=== PATIENT | female | born 1990 | race Caucasian/White ===

== ENCOUNTER 2018-07-08 09:41 | Inpatient (IN) ==
[2018-07-08] MEDS ORDERED: Naloxone 0.4 MG/ML INJ IVP PRN ×2 (10:31→11:53)
[2018-07-08] MEDS ORDERED: *HR* Nalbuphine 10 MG/ML AMPUL IVP PRN (10:31)
[2018-07-08] MEDS ORDERED: Ondansetron 4 MG/2 ML VIAL IVP PRN ×2 (10:31→11:53)
[2018-07-08] MEDS ORDERED: Metoclopramide 10 MG/2 ML VIAL IVP PRN (10:31)
[2018-07-08] MEDS ORDERED: Famotidine 20 MG/2 ML VIAL IVP PRN (10:31)
[2018-07-08 10:53] LABS: Basophils % 0.1 %; Eosinophils % 0.2 %; Hematocrit 36.1 % (35.3-44.9); Hemoglobin 12.9 g/dL (11.5-15.4); Immature Granulocytes % 0.3 % (0-4); Lymphocytes # 1.8 K/mcL (0.6-4.6); Lymphocytes % 18.5 %; Mean Corpuscular HGB Conc 35.7 g/dL (31.6-35.5); Mean Corpuscular Volume 86.8 fL (83.0-100.0); Mean Platelet Volume 11.1 fL (9.4-12.4); Monocytes # 0.5 K/mcL (0.0-1.3); Monocytes % 4.6 %; Neutrophils # 7.4 K/mcL (1.6-8.9); Platelet Count 221 K/mcL (140-400); Red Blood Count 4.16 M/mcL (3.82-4.97); Red Cell Distribution Width 12.3 % (11.5-14.5); Segmented Neutrophils % 76.3 %
[2018-07-08 11:16] LABS: Alanine Aminotransferase 17 Units/L (7-52); Aspartate Amino Transferase 20 Units/L (13-39); BUN/Creatinine Ratio 22 (6-26); Blood Urea Nitrogen 13 mg/dL (6-20); Lactate Dehydrogenase 166 Units/L (140-271); Uric Acid 6.6 mg/dL (2.3-7.6); eGFR For Non-African Americans > 60 (> 60)
--- NOTE | 2018-07-08 11:27 | OB/GYN History & Physical ---
Date of Encounter: 07/08/18 Time of Encounter: 11:24 Assessment and Plan (1) Spontaneous rupture of amniotic membranes Current visit: Yes Status: Acute Admit for expectant management. Nubain and epidural when requested. Will augment if needed. Anticipate . (2) 36 weeks gestation of Current visit: Yes Status: Acute History of Present Illness Chief complaint: SROM HPI: Ms. Strange is a 27 year old female presenting at 36w5d for leaking clear fluid since 0530 this am. She reports she has continued leaking since. She also reports contractions about 20 minutes apart. No other complaints. Good FM. O positive Rubella immune Serologies negative GBS negative Past Med Surg Social Fam HX - Past Medical History Medical history: asthma Psychiatric history: no psych history - Past Surgical History Additional surgical history: wisdom teeth removal - Social History Smoking Status: Former smoker Smokeless Tobacco Status: No Alcohol use: none Drug use: none - Family History Mother History Unknown: Yes Obstetrical History - Pregnancies : 1 Medications and Allergies Tablet 07/08/18 [History] Zyrtec 07/08/18 [History] 3 Allergy/AdvReac Type Severity Reaction Status Date / Time No Known Allergies Allergy Verified 07/08/18 09:52 Review of System OB All systems PM: reviewed and no additional remarkable complaints except as stated Exam - Constitutional Constitutional: well developed, well nourished, no acute distress - HEENT HEENT: Mucus Membranes Moist - Lungs Respiratory exam: CTAB - Cardiovascular Cardiovascular exam: RRR, +S1, +S2 - Abdomen Abdomen: Present: gravid - Extremities Extremities exam: normal inspection Deep Tendon Reflex Grade: 2+ Normal - Vulva Vulva: bilateral: normal - Vagina Vagina: Present: normal moisture (SSE with large amount pooling of clear fluid. Positive nitrazine.) - Cervix Dilation: 2 Effacement: 90 Station: -1 - Anus/Rectum Anus/Rectum: Present: normal perianal skin Results Result Diagrams: 07/08/18 10:30 07/08/18 10:30 Abnormal lab results MCHC 35.7 g/dL (31.6-35.5) H 07/08/18 10:30 Creatinine 0.59 mg/dL (0.60-1.20) L 07/08/18 10:30 All other labs normal. - VTE Reasons for not Prescribing Prophylaxis: Treatment not Indicated - Low risk for VTE
[2018-07-08] MEDS ORDERED: *HR* FentaNYL (PF) 100 MCG/2 ML VIAL EP ONE (11:53)
[2018-07-08] MEDS ORDERED: *HR* Ropivacaine/PF 0.2% 20 ML VIAL EP ONE (11:53)
[2018-07-08] MEDS ORDERED: EPHEDrine 50 MG/ML VIAL IVP PRN (11:53)
[2018-07-08] MEDS ORDERED: Bupivacaine-MPF 0.25% 10 ML VIAL EP ONE (11:53)
--- NOTE | 2018-07-08 11:57 | Anesthesia Evaluation PreOp ---
Date of Encounter: 07/08/18 Time of Encounter: 11:55 - Past History Planned Operation: SHINE Cardiac History: Denies any Significant Hx Pulmonary History: Asthma GIRL FRIDAY History: Denies Any Significant HX Other Medical History: Denies Any Significant HX Anesthesia History: No Prior Anesthetic Complications, Past Anesthesia (wisdom teeth extraction) : Yes Alcohol Use: none Drug use: none Medications and Allergies Tablet 07/08/18 [History] Zyrtec 07/08/18 [History] 3 Allergy/AdvReac Type Severity Reaction Status Date / Time No Known Allergies Allergy Verified 07/08/18 09:52 - Meds/Allergy Pre-op Review Medications Reviewed: Yes Allergies Reviewed: Yes Beta Blockers on Current Med List: No Anesthesia Results - Labs 07/08/18 10:30 07/08/18 10:30 Anesthesia Exam BP 143/79 P 76 T 97.4 R 16 Height: 5'5" Weight: 104.1kg NPO (# of Hours): 4hrs solids, recent clears Pain Scale: 3 Pain Scale Used: Numeric (1 - 10) - HEENT Pupil (Motor): Pupils equal Mallampati: II Teeth: Normal Oral Opening: Greater than 3 - GIRL FRIDAY LOC: Oriented GIRL FRIDAY Motor: Normal RUE, Normal LUE, Normal RLE, Normal LLE, Normal Face GIRL FRIDAY Sensory: Normal: RUE, LUE, RLE, LLE, Face - Cardiac Rhythm: Regular Murmur: None JVD: No Carotid Bruit: No - Pulmonary Breath Sounds: bilateral Clear Respiratory Effort: Symmetrical Anesthesia Assess/Plan ASA Score: 2 Modified [place] Scale for Level of Consciousness: Cooperative, oriented, and tranquil Anesthetic Plan: Regional Autologous Blood: No Monitoring Plan: Standard Monitors Recovery Plan: Other
[2018-07-08] MEDS ORDERED: Epidural Premix (fent/bupiv) 110 ML EP SCH (12:00)
[2018-07-08] MEDS ORDERED: Oxytocin 20 units/ LR 1000 mL 20 UNIT/1,000 ML BAG IVC SCH ×2 (12:15→19:54)
[2018-07-08] MEDS: Ringers Solution, Lactated 1,000 ML IVC SCH ×2 (12:17→15:48)
[2018-07-08 12:25] LABS: Amphetamine Screen,Urine Negative ng/mL (Cutoff=1000); Barbiturate Screen,Urine Negative ng/mL (Cutoff=200); Benzodiazepines Screen,Urine Negative ng/mL (Cutoff=200); Cannabinoid Screen,Urine Negative ng/mL (Cutoff = 50); Cocaine Screen,Urine Negative ng/mL (Cutoff= 300); Opiate Screen,Urine Negative ng/mL (Cutoff=300); Phencyclidine Screen,Urine Negative ng/mL (Cutoff=25); Protein/Creatinine Ratio,Urine 0.55 mg/mg (0.00-0.20)
[2018-07-08] MEDS ORDERED: Lidocaine 1% 20 ML MDV ONE (13:36)
[2018-07-08] MEDS ORDERED: Lidocaine -MPF 2% 5 ML VIAL ONE (13:36)
[2018-07-08] MEDS ORDERED: *HR* FentaNYL (PF) 100 MCG/2 ML VIAL ONE (13:37)
--- NOTE | 2018-07-08 14:14 | Anesthesia Procedures ---
Date of Encounter: 07/08/18 Time of Encounter: 13:40 Procedures: Anesthesia - Epidural/Spinal Patient ID/Chart reviewed: Yes Patient examined: Yes OB Eval: Gestational age: 36 OB Eval: : 1 OB Eval: Hx Para: 0 OB Eval: Contractions: Non-stressed pattern Consent Obtained: Yes Supplemental Oxygen: None/Room Air Site Prep: Aseptic Technique Patient position: upright Local Anesthetic: Lidocaine 1% Amount of Local Anesthetic used: 3 Touhy Needle Gauge: 18 Touhy Needle Depth (cm): 8 Catheter Depth at Skin (cm): 15 Test Dose (1.5% Lido + Epi): Volume given (mls): 3 Test Dose Result: Negative Loading Dose: 0.25% Marcaine (mls): 7 Loading Dose: Fentanyl (mcg): 100 Loading Dose Administered: Thru Catheter Infusion Med: 0.125% Bupivacaine w/ 2 mcg/ml Fentanyl Infusion Rate (mls/hr): [address]: Tegaderm, Tape Interspace Used: L4-L5 Loss of Resistance (MARYAM): Yes Blood: No CSF: No Paresthesia: No Procedure: SHINE placed 1st pass in upright position without any immediate noted complications. VSS and FHT stable throughout. Vitals + FHT's: 1340 BP 139/81 P 91 R20 1405 BP 111/56 P 72 R 16 FHT 130s
--- NOTE | 2018-07-08 14:23 | OB Labor Progress Note ---
Date of Encounter: 07/08/18 Time of Encounter: 14:18 Labor Progress Note - Subjective Subjective: Pt comfortable with epidural. - Cervix Cervix: 7/100/0 - Heart Tones Heart Tones: Category II, deceleration noted, difficulty tracing with EFM. FSE placed. Pt repositioned, LR bolusing, O2 started. - Plan Plan: Continue to monitor. Anticipate .
--- NOTE | 2018-07-08 17:33 | OB/GYN Procedure Note ---
Delivery - Delivery Date: 07/08/18 Provider: Minal Hankins Intrapartum events: none Delivery induction: none Delivery augmentation: pitocin Delivery monitor: internal FHT, internal uterine Anesthesia: epidural Quantitated Blood Loss: 200 - (s) A Infant Delivery Date: 07/08/18 Delivery Time: 16:33 Presentation: vertex Position: ISA Route of delivery: Gender: Female Viability: Viable Pounds: 6 Ounces: 2 Weight Gram: 2.77 kg at 1 minute: 8 at 5 mins: 9 Shoulder Dystocia: not encountered Shoulder Dystocia Maneuvers: Gia maneuver Specimens collected: cord blood Placenta: spontaneous Cord: nuchal cord (x2), nuchal reduced - Repair Episiotomy: none Laceration Description: Perineal - 1st Degree - Complications Delivery complications: none Delivery comments: Pt presented following SROM and progressed well to for viable female infant weighing 6lbs 2oz with apgars 8 at one minute and 9 at five minutes. A nuchal cord x 2 was noted and reduced. After pulsations ceased the cord was clamped and cut and the placenta delivered spontaneous and intact. A first degree perineal laceration was repaired with 2-0 Monocryl. EBL 200ml. Mother and baby stable in kangaroo care following procedure. - Disposition Mom disposition: stable in LDR disposition: stable in LDR
[2018-07-08] MEDS ORDERED: Acetaminophen 325 MG TABLET PO PRN (19:54)
[2018-07-08] MEDS ORDERED: Measles/Mumps/Rubella Vacc 0.5 ML VIAL SQ PRN (19:54)
[2018-07-09] MEDS: Ibuprofen 600 MG TABLET PO PRN ×2 (04:38→11:04)
[2018-07-09 05:30] LABS: Basophils % 0.2 %; Eosinophils % 0.3 %; Hematocrit 31.8 % (35.3-44.9); Immature Granulocytes % 0.4 % (0-4); Lymphocytes # 1.5 K/mcL (0.6-4.6); Lymphocytes % 13.7 %; Mean Corpuscular HGB Conc 34.6 g/dL (31.6-35.5); Mean Corpuscular Hemoglobin 30.3 pg (28.0-33.3); Mean Corpuscular Volume 87.6 fL (83.0-100.0); Monocytes # 0.6 K/mcL (0.0-1.3); Monocytes % 5.3 %; Neutrophils # 8.9 K/mcL (1.6-8.9); Platelet Count 186 K/mcL (140-400); Red Blood Count 3.63 M/mcL (3.82-4.97); Red Cell Distribution Width 12.8 % (11.5-14.5); Segmented Neutrophils % 80.1 %
[2018-07-09 08:02] VITALS: BP 135/92
[2018-07-09] MEDS ORDERED: Prenatal Vit/FA 1 EACH TABLET PO SCH (09:00)
--- NOTE | 2018-07-09 10:25 | Discharge Summary ---
Date of Encounter: 07/09/18 Time of Encounter: 10:22 - Discharge Diagnosis (1) Vaginal delivery Priority: Primary Status: Acute Comments: Pain well controlled with by mouth pain meds Tolerating regular diet Lochia light Voiding independently Passing flatus, but no BM yet Ambulating independently Vital signs stable Discharge home today (2) Breast feeding status of mother Priority: Secondary Status: Acute Comments: Community resources provided - Discharge Medications Prescriptions: Ibuprofen [Motrin] 600 mg PO Q6HR PRN #30 tablet PRN Reason: Cramping Docusate [Colace] 100 mg PO BID #30 capsule Home Medications: Tablet 07/08/18 [History] Zyrtec 07/08/18 [History] Acetaminophen [Tylenol] 650 mg PO Q6HR PRN tablet 07/09/18 [Rx] Docusate [Colace] 100 mg PO BID #30 capsule 07/09/18 [Rx] Ibuprofen [Motrin] 600 mg PO Q6HR PRN #30 tablet 07/09/18 [Rx] Allergies/Adverse Reactions: 3 Allergy/AdvReac Type Severity Reaction Status Date / Time No Known Allergies Allergy Verified 07/08/18 09:52 Data Procedures and tests throughout hospitalization: Laboratory Tests 07/08/18 07/08/18 07/08/18 10:30 10:30 10:30 WBC 9.7 RBC 4.16 Hgb 12.9 Hct 36.1 MCV 86.8 MCH 31.0 MCHC 35.7 H RDW 12.3 Plt Count 221 MPV 11.1 Immature Gran % 0.3 Seg Neutrophils % 76.3 Lymphocytes % 18.5 Monocytes % 4.6 Eosinophils % 0.2 Basophils % 0.1 Neutrophils # 7.4 Lymphocytes # 1.8 Monocytes # 0.5 Eosinophils # 0.0 Basophils # 0.0 BUN Creatinine Est GFR ( Amer) Est GFR (Non-Af Amer) BUN/Creatinine Ratio Uric Acid AST ALT Lactate Dehydrogenase Urine Creatinine 49 Protein/Creatinin Ratio 0.55 H Urine Total Protein 27 H Urine Opiates Screen Negative Ur Barbiturates Screen Negative Ur Phencyclidine Scrn Negative Ur Amphetamines Screen Negative U Benzodiazepines Scrn Negative Urine Cocaine Screen Negative U Marijuana (THC) Screen Negative Ur Drug Screen Interp See Below 07/08/18 07/09/18 10:30 04:32 WBC 11.1 RBC 3.63 L Hgb 11.0 L D Hct 31.8 L MCV 87.6 MCH 30.3 MCHC 34.6 RDW 12.8 Plt Count 186 MPV 11.0 Immature Gran % 0.4 Seg Neutrophils % 80.1 Lymphocytes % 13.7 Monocytes % 5.3 Eosinophils % 0.3 Basophils % 0.2 Neutrophils # 8.9 Lymphocytes # 1.5 Monocytes # 0.6 Eosinophils # 0.0 Basophils # 0.0 BUN 13 Creatinine 0.59 L Est GFR ( Amer) > 60 Est GFR (Non-Af Amer) > 60 BUN/Creatinine Ratio 22 Uric Acid 6.6 AST 20 ALT 17 Lactate Dehydrogenase 166 Urine Creatinine Protein/Creatinin Ratio Urine Total Protein Urine Opiates Screen Ur Barbiturates Screen Ur Phencyclidine Scrn Ur Amphetamines Screen U Benzodiazepines Scrn Urine Cocaine Screen U Marijuana (THC) Screen Ur Drug Screen Inter Labs on day of discharge: Labs from last 24 hours 07/09/18 07/08/18 07/08/18 04:32 10:30 10:30 WBC 11.1 9.7 RBC 3.63 L 4.16 Hgb 11.0 L D 12.9 Hct 31.8 L 36.1 MCV 87.6 86.8 MCH 30.3 31.0 MCHC 34.6 35.7 H RDW 12.8 12.3 Plt Count 186 221 MPV 11.0 11.1 Immature Gran % 0.4 0.3 Seg Neutrophils % 80.1 76.3 Lymphocytes % 13.7 18.5 Monocytes % 5.3 4.6 Eosinophils % 0.3 0.2 Basophils % 0.2 0.1 Neutrophils # 8.9 7.4 Lymphocytes # 1.5 1.8 Monocytes # 0.6 0.5 Eosinophils # 0.0 0.0 Basophils # 0.0 0.0 BUN 13 Creatinine 0.59 L Est GFR ( Amer) > 60 Est GFR (Non-Af Amer) > 60 BUN/Creatinine Ratio 22 Uric Acid 6.6 AST 20 ALT 17 Lactate Dehydrogenase 166 Urine Creatinine Protein/Creatinin Ratio Urine Total Protein Urine Opiates Screen Ur Barbiturates Screen Ur Phencyclidine Scrn Ur Amphetamines Screen U Benzodiazepines Scrn Urine Cocaine Screen U Marijuana (THC) Screen Ur Drug Screen Interp 07/08/18 07/08/18 10:30 10:30 WBC RBC Hgb Hct MCV MCH MCHC RDW Plt Count MPV Immature Gran % Seg Neutrophils % Lymphocytes % Monocytes % Eosinophils % Basophils % Neutrophils # Lymphocytes # Monocytes # Eosinophils # Basophils # BUN Creatinine Est GFR ( Amer) Est GFR (Non-Af Amer) BUN/Creatinine Ratio Uric Acid AST ALT Lactate Dehydrogenase Urine Creatinine 49 Protein/Creatinin Ratio 0.55 H Urine Total Protein 27 H Urine Opiates Screen Negative Ur Barbiturates Screen Negative Ur Phencyclidine Scrn Negative Ur Amphetamines Screen Negative U Benzodiazepines Scrn Negative Urine Cocaine Screen Negative U Marijuana (THC) Screen Negative Ur Drug Screen Interp See Below Date of admission: 07/08/18 09:41 Primary care physician: PCP NONE Consults: 07/08/18 19:54 Consult to Regional Office Coordinator [CONS] Routine Comment: Vaginal delivery, consult needed Discharging clinician: Jasmin Pitt Anticipated date of discharge: 07/09/18 - Patient Status Disposition: Home, Self-Care Condition: Good Functional capacity at discharge: independent ambulation Overall status at discharge: patient is progressing back to baseline - Discharge Instructions Follow Up With: NONE,PCP [Primary Care Provider] - Minal Hankins CNM [Non-Partnered Physician] - - Diet and Activity Activity: increase activity as tolerated Diet: regular diet Hospital Course Procedures: Reason for admission: active labor, IUP at term Delivery: Episiotomy: none Laceration: 1st degree Other procedures: none complications: none Discharge diagnosis: IUP at term delivered [place] baby: female Hospital course: Patient presented after SROM Labor progressed spontaneously delivered without complication Plan to discharge today Time Attestation: Total time spent providing and/or coordinating discharge services: Time Spent: Less than 30 minutes Exam - Constitutional Vitals: Temp Pulse Resp BP Pulse Ox 98.6 F 95 14 135/92 98 07/09/18 08:01 07/09/18 08:01 07/09/18 08:01 07/09/18 08:01 07/09/18 08:01 General appearance IM: A&O X 3 - Respiratory Respiratory exam: Present: CTAB - Cardiovascular Cardiovascular exam IM: Present: RRR, +S1, +S2 - GI/Abdominal GI/Abdominal exam IM: normal bowel sounds, no peritoneal signs - Rectal Rectal exam: deferred - Uterine Tone: Firm Uterus Position: 1 Finger Below Umbilicus, Midline - Extremities Exam Extremities exam IM: Present: normal capillary refill, normal inspection, pedal edema, radial pulses palpable and symmetrical - Neurological Exam Neurological exam: alert, CN II-XII intact, normal gait, oriented X3, reflexes normal, no focal deficits, strengths equal and symetr throughout - Psychiatric Additional comments: Signs and symptoms of depression discussed with patient and partner and both verbalize understanding of when to seek help - Other Additional findings: Breasts: Soft, nontender. Nipples intact without erythema.
== END 2018-07-09 18:23 | disposition home or self-care (01) | DRG 775 ==
LOC: 1NENULAB → OBSVTOIN 09:41 → 1NENUOBS 19:47
PROVIDERS: ADMIT Obstetrics & Gynecology; ATTEND Obstetrics & Gynecology

== ENCOUNTER → 2022-05-30 01:33 | Observation (INO) ==
[2022-05-29 22:07] LABS: Bacteria,Urine Few per hpf (None-Few); Bilirubin,Urine Negative (Negative); Blood,Urine Negative (Negative); Clarity,Urine Clear (Clear); Color,Urine Colorless (Yellow); Glucose,Urine (UA) Normal (Normal); Ketones,Urine Negative (Negative); Leukocyte Esterase,Urine Large (Negative); Nitrite,Urine Negative (Negative); PH,Urine 6.5 pH Units (5.0-8.0); Protein,Urine Negative (Neg-Trace); RBC,Urine 0-3 per hpf (0-3); Squamous Epithelial Cell,Urine Few per hpf (None-Few); Urobilinogen,Urine Normal (Normal)
[~2022-05-30 01:33] MED LIST: Terbutaline 1 MG/ML VIAL SQ ONE
== END | disposition home or self-care (01) ==
LOC: 1NENULAB
PROVIDERS: ADMIT Obstetrics & Gynecology; ATTEND Obstetrics & Gynecology

== ENCOUNTER 2022-06-22 16:59 | Observation (INO) ==
[2022-06-22] MEDS ORDERED: EPHEDrine 50 MG/ML VIAL IVP PRN (19:04)
[2022-06-22] MEDS ORDERED: Epidural Premix (fent/bupiv) 110 ML EP SCH (19:15)
== END 2022-06-22 20:06 | disposition home or self-care (01) ==
LOC: 1NENULAB
PROVIDERS: ADMIT Advanced Practice Midwife; ATTEND Advanced Practice Midwife

== ENCOUNTER 2022-07-01 00:39 | Inpatient (IN) ==
[~2022-07-01 00:39] MED LIST changes: +*HR* Nalbuphine 10 MG/ML AMPUL IV PRN; +Azithromycin 500 MG in 0.9 % Sodium Chloride 250 ML IVPB PRN; +Famotidine 20 MG/2 ML VIAL IVP PRN; +Metoclopramide 10 MG/2 ML VIAL IVP PRN; +Naloxone 0.4 MG/ML INJ IVP PRN; +Ondansetron 4 MG/2 ML VIAL IVP PRN; +Ringers Solution, Lactated 1,000 ML ONE; -Terbutaline 1 MG/ML VIAL SQ ONE
[2022-07-01] MEDS ORDERED: Ringers Solution, Lactated 1,000 ML IVC SCH (00:45)
[2022-07-01] MEDS ORDERED: EPHEDrine 50 MG/ML VIAL IVP PRN (00:54)
[2022-07-01] MEDS ORDERED: Epidural Premix (fent/bupiv) 110 ML EP ONE (00:58)
[2022-07-01] MEDS ORDERED: Epidural Premix (fent/bupiv) 110 ML EP SCH (01:00)
[2022-07-01] MEDS ORDERED: Oxytocin 30 UNIT/503 ML BAG IVC ONE ×2 (01:16→02:46)
[2022-07-01 02:38] LABS: Basophils % 0.1 %; Eosinophils % 0.1 %; Hematocrit 39.2 % (35.3-44.9); Immature Granulocytes % 0.2 % (0-4); Lymphocytes % 24.8 %; Mean Corpuscular HGB Conc 33.2 g/dL (31.6-35.5); Mean Corpuscular Hemoglobin 28.6 pg (28.0-33.3); Mean Corpuscular Volume 86.2 fL (83.0-100.0); Mean Platelet Volume 10.3 fL (9.4-12.4); Monocytes # 0.6 K/mcL (0.0-1.3); Monocytes % 5.2 %; Neutrophils # 8.5 K/mcL (1.6-8.9); Platelet Count 331 K/mcL (140-400); Red Blood Count 4.55 M/mcL (3.82-4.97); Red Cell Distribution Width 12.6 % (11.5-14.5); Segmented Neutrophils % 69.6 %; White Blood Count 12.2 K/mcL (4.3-11.1)
[2022-07-01] MEDS ORDERED: OXYTOCIN/RINGERS LACTATE 10 UNIT/166.6 ML BAG IVC ONE (05:15)
[2022-07-01] MEDS ORDERED: Lanolin 7 G OINT...G. TP PRN (05:15)
[2022-07-01] MEDS ORDERED: Oxytocin 30 UNIT/503 ML BAG IVC SCH (05:15)
[2022-07-01] MEDS ORDERED: Benzocaine/Menthol 56 GM AEROSOL SPRAY TP PRN (05:15)
[2022-07-01] MEDS ORDERED: Ondansetron ODT 4 MG TAB.RAPDIS SL PRN (06:00)
[2022-07-01] MEDS: Acetaminophen 325 MG TABLET PO SCH ×3 (06:55→19:53)
[2022-07-01] MEDS: Ibuprofen 600 MG TABLET PO SCH ×3 (06:55→19:53)
[2022-07-01] MEDS: Prenatal Vit/FA 1 EACH TABLET PO SCH (09:44)
[2022-07-01 19:03] VITALS: O2SAT 97
[2022-07-02] MEDS: Ibuprofen 600 MG TABLET PO SCH ×3 (03:16→10:07)
[2022-07-02] MEDS: Acetaminophen 325 MG TABLET PO SCH ×3 (03:17→10:07)
[2022-07-02 07:22] VITALS: BP 121/75; PULSE 73; TEMP 98
[2022-07-02] MEDS: Prenatal Vit/FA 1 EACH TABLET PO SCH (10:07)
== END 2022-07-02 12:30 | disposition home or self-care (01) | DRG 806 ==
LOC: 1NENULAB → 1NENUOBS 04:50
PROVIDERS: ADMIT Obstetrics & Gynecology; ATTEND Obstetrics & Gynecology